=== PATIENT | male | born 1995 | race Two or more races ===

== ENCOUNTER 2020-12-04 00:03 | Emergency (ER) | payer OTHER ==
[~2020-12-04] VITALS: Ht 160 cm; Wt 63.5 kg
== END 2020-12-04 04:04 ==
LOC: ER 00:03
DX: B34.9 Viral infection, unspecified (principal); Z03.818 Encounter for observation for suspected exposure to other biological agents ruled out

== ENCOUNTER 2022-08-09 17:58 | Emergency (ER) | payer OTHER ==
[~2022-08-09] VITALS: Ht 160 cm; Wt 63.5 kg
== END 2022-08-09 21:13 | disposition home or self-care (01) ==
LOC: ER 17:58
DX: R11.0 Nausea (principal)

== ENCOUNTER 2023-02-11 03:38 | Emergency (ER) | payer OTHER ==
[~2023-02-11] VITALS: Ht 160 cm; Wt 63.5 kg
[2023-02-11] MEDS ORDERED: FLONASE16 GM NASAL (05:25)
== END 2023-02-11 05:31 ==
LOC: ER 03:39
DX: R04.0 Epistaxis (principal)